=== PATIENT | female | born 1980 | race Caucasian/White ===

== ENCOUNTER 2018-11-08 10:45 | Outpatient (RCR) | payer BC, SELFPAY ==
--- NOTE | 2018-09-21 17:37 | PT.OIE ---
Current Diagnoses Mixed incontinence (09/21/18) Provider Visit Care Team Role Provider Type Keila Lockwood PA-C Attending Provider Non-Staff Primary Care Provider Specialty: Medical Address: [address] [place] [address] [address]n, [place], [address] Email: Physical Therapy Initial Evaluation PT-OP-A Visit Information Start: 09/21/18 14:34 Freq: Status: Active Protocol: Document 09/21/18 14:35 [facility] (Rec: 09/21/18 15:33 [facility] [email or web address]) Out-Patient Physical Therapy Visit Information Visit Information Visit Type Initial Evaluation Visit Start Time 14:30 Visit Stop Time 15:15 Total Visit Minutes 45 Visit Number 1 Evaluation Information Evaluation Date 09/21/18 PT-OP-B Current Condition Start: 09/21/18 14:34 Freq: Status: Active Protocol: Document 09/21/18 14:35 [facility] (Rec: 09/21/18 14:47 [facility] [id number]) Current Condition History of Current Condition Onset Date 4 years ago Current Complaints urinary stress incontinence History of Current Condition 37 year old female 4 years . In the past year she has really noticed increased symptoms of urinary incontinence with exercise, changing positions, light activity, and intercourse. She reports she feels damp all the time. Mary reports she will void but feels as if she is not fully emptying and then will experience leakage once she is up and moving again. Treatment Goals Patient/Caregiver Goals Goals include decreasing leakage and improving pelvic floor strength. She would also like to be able to run again Prior Functional Status Baseline Function- ADL's Independent Baseline Function- Mobility Independent Baseline Function- Other prior to her vaginal delivery 4 years ago she had no symptoms of urinary incontinence Current Functional Impairments (Reported) Functional Limitations- Other urinary leakage at work and with both vigorous and light activity, changing positions and with intercourse PT-OP-I Pelvic Floor Start: 09/21/18 15:36 Freq: Status: Active Protocol: Document 09/21/18 14:35 [facility] (Rec: 09/21/18 16:00 [facility] [email or web address]) Pelvic Floor Assessment Urine Pelvic Floor Surgery No Urinary Symptoms Dribbling After Urination Incomplete Emptying Leakage Size Small Leakage Cause Cough Exercise Lifting Sneeze Leaks Per Day 5 Voiding Frequency 5 times per day, tends to hold for a long time at work during the day Nocturia 0-1 times Pelvic Clock Pelvic Clock 12-3 Atrophy Pelvic Clock 6-9 Guarding Tenderness Pelvic Clock Other difficulty relaxing the left lateral wall of the levator ani SEMG (uV) Baseline 3.0 10 Second Contraction 2.9 Recruitment Pattern Poor/Slow Relaxation Poor/Slow Holding Poor/Slow Stability of Hold Poor/Slow SEMG Stability of Rest Poor/Slow Contraction Ability Voluntary Contraction Absent Manual Muscle Testing Left 1 Manual Muscle Testing Right 1 Manual Muscle Testing Anterior 1 Manual Muscle Testing Posterior 1 Muscle Endurance (Seconds) 3 Number of Quick Contractions In 10 4 Seconds Comments Pelvic Floor Comments very small palpable contraction of the pelvic floor. With EMG biofeedback and NMRE Mary was able to improve her recruitment PT-OP-Q Treatments Start: 09/21/18 15:36 Freq: Status: Active Protocol: Document 09/21/18 14:35 [facility] (Rec: 09/21/18 16:00 [facility] [email or web address]) Therapeutic Exercises Supine Exercises 5 Supine Exercise Name Happy baby and piriformis stretch Comments cues to spread the sitting bones 4 Supine Exercise Name Roll outs Side bilateral Reps/Minutes 3 x 10 reps 3 Supine Exercise Name roll ins to help assist the pelvic floor Side bilateral Reps/Minutes x 10 2 Supine Exercise Name quick contractions Reps/Minutes x 5 1 Supine Exercise Name pelvic floor long holds Side bilateral Reps/Minutes 5 sec hold 10 sec relax x 10 reps to do 2 xms per day at home Neuro Re-Education Treatment Other Activities 1 Details pelvic floor facilitation with EMG biofeedback and manual cues Comments worked on facilitation of the pelvic floor and then trying long holds and quick flicks with EMG biofeedback and manual tactile cues PT-OP-T Assessment and Plan Start: 09/21/18 15:36 Freq: Status: Active Protocol: Document 09/21/18 14:35 [facility] (Rec: 09/21/18 16:00 [facility] [email or web address]) Physical Therapy Assessment Rehab Potential Rehabilitation Potential Excellent Evaluation Complexity Number of Personal Factors/Comorbidities 0 Number of Body Systems Impaired 1-2 Clinical Presentation at Evaluation Stable Impairments Impairments Activity Tolerance Strength Tone Other Impairments urinary stress incontinence Goals Four Impairment Guarding of the left lateral wall of the illiococcygeus Short Term Goal (STG) With stretches for the pelvic floor Mary is able to reduce tightness of the left lateral wall STG Duration 4 weeks Three Impairment Decreased pelvic floor endurance holds 2-3 seconds only Short Term Goal (STG) Improve endurance of the pelvic floor in supine to 10 second hold time STG Duration 4 weeks Fur Finisher Tailor Goal (LTG) Improve endurance of the pelvic floor in standing to 10 second hold time LTG Duration 8 weeks + Two Impairment Poor strength of the levator ani 1/5 MMT all parts internal pelvic clock Short Term Goal (STG) With Neuromuscular re- education Mary is able to facilitate a pelvic floor contraction and has the sensation that she is marisol her pelvic floor STG Duration 2-3 weeks Detention Goal (LTG) Improve strength of all parts of the levator ani from 1/5 to 3-4/5 MMT for improved support of the bladder LTG Duration 8 weeks One Impairment Urinary incontinence 5 times per day and feeling as if she is always damp Detention Goal (LTG) With pelvic floor strengthening Mary is able to eliminate her leakage with ADL's and work related activity. She is able to return to a exercise routine slowly progressing without leakage. LTG Duration 8 weeks + Assessment Summary Assessment Mary presents to physical therapy today at 4 years s/p vaginal delivery. She has had increased leakage since this time but it has progressively worsened in the last year. She feels at this time she is damp all day and has leaks up to 5 times per day. She reports she will void and then experience leakage soon after she has voided once standing and walking around. She is limited in her exercise routine due to leakage. With examination she is very weak in her pelvic floor with 1/5 MMT for all parts of the levator ani. She is guarded on the left lateral wall in the illiococcygeus musculature . She lacks endurance of her pelvic floor with only being to hold 2-3 seconds. She did respond well today to Neuro re -education of the pelvic floor with tactile cues and EMG biofeedback. Mary may benefit from neuromuscular electrical stimulation to help her wake up her pelvic floor. She is a good candidate for PT Physical Therapy Plan Frequency and Duration Frequency of Treatment 1x/Week Duration of Treatment 8 weeks Plan of Care Start Date 09/21/18 Plan of Care End Date 11/16/18 Therapeutic Interventions Therapeutic Interventions Home Exercise Program Manual Therapy Neuromuscular Re-education Self-Care/Home Management Therapeutic Exercises Modalities Biofeedback Electric Stimulation Next Visit Focus/Plan Next Note Type Treatment Note Next Visit Plan Review exercises given today and begin to work on improved endurance of the pelvic floor muscles.
--- NOTE | 2018-09-21 17:40 | PT.OPPOC ---
Current Diagnoses Muscle weakness (generalized) (09/21/18) Mixed incontinence (09/21/18) Provider Visit Care Team Role Provider Type Keila Lockwood PA-C Attending Provider Non-Staff Primary Care Provider Specialty: Medical Address: [address] [place] [address] [address]guy[address]n, [place], [address] Email: Plan Of Care PT-OP-T Assessment and Plan Start: 09/21/18 15:36 Freq: Status: Active Protocol: Document 09/21/18 14:35 [facility] (Rec: 09/21/18 16:00 [facility] [email or web address]) Physical Therapy Assessment Rehab Potential Rehabilitation Potential Excellent Evaluation Complexity Number of Personal Factors/Comorbidities 0 Number of Body Systems Impaired 1-2 Clinical Presentation at Evaluation Stable Impairments Impairments Activity Tolerance Strength Tone Other Impairments urinary stress incontinence Goals Four Impairment Guarding of the left lateral wall of the illiococcygeus Short Term Goal (STG) With stretches for the pelvic floor Mary is able to reduce tightness of the left lateral wall STG Duration 4 weeks Three Impairment Decreased pelvic floor endurance holds 2-3 seconds only Short Term Goal (STG) Improve endurance of the pelvic floor in supine to 10 second hold time STG Duration 4 weeks Snf Goal (LTG) Improve endurance of the pelvic floor in standing to 10 second hold time LTG Duration 8 weeks + Two Impairment Poor strength of the levator ani 1/5 MMT all parts internal pelvic clock Short Term Goal (STG) With Neuromuscular re- education Mary is able to facilitate a pelvic floor contraction and has the sensation that she is marisol her pelvic floor STG Duration 2-3 weeks Coffin Maker Goal (LTG) Improve strength of all parts of the levator ani from 1/5 to 3-4/5 MMT for improved support of the bladder LTG Duration 8 weeks One Impairment Urinary incontinence 5 times per day and feeling as if she is always damp Snf Goal (LTG) With pelvic floor strengthening Mary is able to eliminate her leakage with ADL's and work related activity. She is able to return to a exercise routine slowly progressing without leakage. LTG Duration 8 weeks + Assessment Summary Assessment Mary presents to physical therapy today at 4 years s/p vaginal delivery. She has had increased leakage since this time but it has progressively worsened in the last year. She feels at this time she is damp all day and has leaks up to 5 times per day. She reports she will void and then experience leakage soon after she has voided once standing and walking around. She is limited in her exercise routine due to leakage. With examination she is very weak in her pelvic floor with 1/5 MMT for all parts of the levator ani. She is guarded on the left lateral wall in the illiococcygeus musculature . She lacks endurance of her pelvic floor with only being to hold 2-3 seconds. She did respond well today to Neuro re -education of the pelvic floor with tactile cues and EMG biofeedback. Mary may benefit from neuromuscular electrical stimulation to help her wake up her pelvic floor. She is a good candidate for PT Physical Therapy Plan Frequency and Duration Frequency of Treatment 1x/Week Duration of Treatment 8 weeks Plan of Care Start Date 09/21/18 Plan of Care End Date 11/16/18 Therapeutic Interventions Therapeutic Interventions Home Exercise Program Manual Therapy Neuromuscular Re-education Self-Care/Home Management Therapeutic Exercises Modalities Biofeedback Electric Stimulation Next Visit Focus/Plan Next Note Type Treatment Note Next Visit Plan Review exercises given today and begin to work on improved endurance of the pelvic floor muscles. Plan of Care Dates Plan of Care Start Date 09/21/18 Plan of Care End Date 11/16/18 Please Sign and Return: I have reviewed this Plan of Care and certify that the skilled therapy services above are required to meet the patient?s needs. Physician Signature Date Printed Name and Credentials Clinical Instructor Signature Printed Name and Credentials
--- NOTE | 2018-09-28 10:12 | PT.OTN ---
Current Diagnoses Mixed incontinence (09/26/18) Physical Therapy Treatment Note PT-OP-A Visit Information Start: 09/21/18 14:34 Freq: Status: Active Protocol: Document 09/26/18 09:00 [facility] (Rec: 09/28/18 10:12 [facility] [email or web address]) Out-Patient Physical Therapy Visit Information Visit Information Visit Type Treatment Note Visit Start Time 09:00 Visit Stop Time 09:45 Total Visit Minutes 45 Visit Number 2 Evaluation Information Evaluation Date 09/21/18 PT-OP-B Current Condition Start: 09/21/18 14:34 Freq: Status: Active Protocol: Document 09/21/18 14:35 [facility] (Rec: 09/21/18 14:47 [facility] [id number]) Current Condition History of Current Condition Onset Date 4 years ago Current Complaints urinary stress incontinence History of Current Condition 37 year old female 4 years . In the past year she has really noticed increased symptoms of urinary incontinence with exercise, changing positions, light activity, and intercourse. She reports she feels damp all the time. Mary reports she will void but feels as if she is not fully emptying and then will experience leakage once she is up and moving again. Treatment Goals Patient/Caregiver Goals Goals include decreasing leakage and improving pelvic floor strength. She would also like to be able to run again Prior Functional Status Baseline Function- ADL's Independent Baseline Function- Mobility Independent Baseline Function- Other prior to her vaginal delivery 4 years ago she had no symptoms of urinary incontinence Current Functional Impairments (Reported) Functional Limitations- Other urinary leakage at work and with both vigorous and light activity, changing positions and with intercourse PT-OP-C Subjective Start: 09/21/18 15:36 Freq: Status: Active Protocol: Document 09/26/18 09:00 [facility] (Rec: 09/28/18 10:12 [facility] [email or web address]) OP-PT Subjective Patient Comments Patient Comments Mary reports has been trying to use the toileting techniques while voiding, she has been working on her exercises PT-OP-I Pelvic Floor Start: 09/21/18 15:36 Freq: Status: Active Protocol: Document 09/21/18 14:35 [facility] (Rec: 09/21/18 16:00 [facility] [email or web address]) Pelvic Floor Assessment Urine Pelvic Floor Surgery No Urinary Symptoms Dribbling After Urination Incomplete Emptying Leakage Size Small Leakage Cause Cough Exercise Lifting Sneeze Leaks Per Day 5 Voiding Frequency 5 times per day, tends to hold for a long time at work during the day Nocturia 0-1 times Pelvic Clock Pelvic Clock 12-3 Atrophy Pelvic Clock 6-9 Guarding Tenderness Pelvic Clock Other difficulty relaxing the left lateral wall of the levator ani SEMG (uV) Baseline 3.0 10 Second Contraction 2.9 Recruitment Pattern Poor/Slow Relaxation Poor/Slow Holding Poor/Slow Stability of Hold Poor/Slow SEMG Stability of Rest Poor/Slow Contraction Ability Voluntary Contraction Absent Manual Muscle Testing Left 1 Manual Muscle Testing Right 1 Manual Muscle Testing Anterior 1 Manual Muscle Testing Posterior 1 Muscle Endurance (Seconds) 3 Number of Quick Contractions In 10 4 Seconds Comments Pelvic Floor Comments very small palpable contraction of the pelvic floor. With EMG biofeedback and NMRE Mary was able to improve her recruitment PT-OP-Q Treatments Start: 09/21/18 15:36 Freq: Status: Active Protocol: Document 09/26/18 09:00 [facility] (Rec: 09/28/18 10:12 [facility] [email or web address]) Therapeutic Exercises Supine Exercises 6 Supine Exercise Name templates for eccentric control and coordination of the pelvic floor Reps/Minutes x 10 min 4 Supine Exercise Name Roll outs Side bilateral Reps/Minutes 3 x 10 reps 3 Supine Exercise Name roll ins to help assist the pelvic floor Side bilateral Reps/Minutes x 10 2 Supine Exercise Name quick contractions Reps/Minutes x 5 1 Supine Exercise Name pelvic floor long holds Side bilateral Reps/Minutes 5 sec hold 10 sec relax x 10 reps to do 2 xms per day at home Neuro Re-Education Treatment Other Activities 2 Details NMES for pelvic floor facilitation Comments able to feel the anterior portion of the pelvic floor Self-Care/Home Management Treatment Education Patient Education Home Exercise Program Other Education toileting strategies for fully voiding PT-OP-T Assessment and Plan Start: 09/21/18 15:36 Freq: Status: Active Protocol: Document 09/26/18 09:00 [facility] (Rec: 09/28/18 10:12 [facility] [email or web address]) Physical Therapy Assessment Assessment Summary Assessment Average on EMG biofeedback today is 7.4 average and 11.9 max, we did start NMES today for improved sensation of the pelvic floor. She is working on relaxed awareness of the pelvic floor and feels it is just as difficult to relax as it is to contract. She is able to feel the anterior portion of the levator ani with NMES Physical Therapy Plan Frequency and Duration Frequency of Treatment 1x/Week Duration of Treatment 8 weeks Plan of Care Start Date 09/21/18 Plan of Care End Date 11/16/18 Therapeutic Interventions Therapeutic Interventions Home Exercise Program Manual Therapy Neuromuscular Re-education Self-Care/Home Management Therapeutic Exercises Modalities Biofeedback Electric Stimulation Next Visit Focus/Plan Next Note Type Treatment Note Next Visit Plan begin with stretches and add in quadraped TA facilitation/ relaxation
--- NOTE | 2018-10-08 12:21 | PT.OTN ---
Current Diagnoses Mixed incontinence (10/04/18) Physical Therapy Treatment Note PT-OP-A Visit Information Start: 09/21/18 14:34 Freq: Status: Active Protocol: Document 10/04/18 10:45 [facility] (Rec: 10/08/18 12:21 [facility] [email or web address]) Out-Patient Physical Therapy Visit Information Visit Information Visit Type Treatment Note Visit Start Time 10:45 Visit Stop Time 11:30 Total Visit Minutes 45 Visit Number 3 PT-OP-B Current Condition Start: 09/21/18 14:34 Freq: Status: Active Protocol: Document 09/21/18 14:35 [facility] (Rec: 09/21/18 14:47 [facility] [id number]) Current Condition History of Current Condition Onset Date 4 years ago Current Complaints urinary stress incontinence History of Current Condition 37 year old female 4 years . In the past year she has really noticed increased symptoms of urinary incontinence with exercise, changing positions, light activity, and intercourse. She reports she feels damp all the time. Mary reports she will void but feels as if she is not fully emptying and then will experience leakage once she is up and moving again. Treatment Goals Patient/Caregiver Goals Goals include decreasing leakage and improving pelvic floor strength. She would also like to be able to run again Prior Functional Status Baseline Function- ADL's Independent Baseline Function- Mobility Independent Baseline Function- Other prior to her vaginal delivery 4 years ago she had no symptoms of urinary incontinence Current Functional Impairments (Reported) Functional Limitations- Other urinary leakage at work and with both vigorous and light activity, changing positions and with intercourse PT-OP-C Subjective Start: 09/21/18 15:36 Freq: Status: Active Protocol: Document 10/04/18 10:45 [facility] (Rec: 10/08/18 12:21 [facility] [email or web address]) OP-PT Subjective Patient Comments Patient Comments Mary reports symptoms are a little better now and she has been doing her exercises PT-OP-I Pelvic Floor Start: 09/21/18 15:36 Freq: Status: Active Protocol: Document 09/21/18 14:35 [facility] (Rec: 09/21/18 16:00 [facility] [email or web address]) Pelvic Floor Assessment Urine Pelvic Floor Surgery No Urinary Symptoms Dribbling After Urination Incomplete Emptying Leakage Size Small Leakage Cause Cough Exercise Lifting Sneeze Leaks Per Day 5 Voiding Frequency 5 times per day, tends to hold for a long time at work during the day Nocturia 0-1 times Pelvic Clock Pelvic Clock 12-3 Atrophy Pelvic Clock 6-9 Guarding Tenderness Pelvic Clock Other difficulty relaxing the left lateral wall of the levator ani SEMG (uV) Baseline 3.0 10 Second Contraction 2.9 Recruitment Pattern Poor/Slow Relaxation Poor/Slow Holding Poor/Slow Stability of Hold Poor/Slow SEMG Stability of Rest Poor/Slow Contraction Ability Voluntary Contraction Absent Manual Muscle Testing Left 1 Manual Muscle Testing Right 1 Manual Muscle Testing Anterior 1 Manual Muscle Testing Posterior 1 Muscle Endurance (Seconds) 3 Number of Quick Contractions In 10 4 Seconds Comments Pelvic Floor Comments very small palpable contraction of the pelvic floor. With EMG biofeedback and NMRE Mary was able to improve her recruitment PT-OP-Q Treatments Start: 09/21/18 15:36 Freq: Status: Active Protocol: Document 10/04/18 10:45 [facility] (Rec: 10/08/18 12:21 [facility] [email or web address]) Therapeutic Exercises Supine Exercises 6 Supine Exercise Name templates for eccentric control and coordination of the pelvic floor Reps/Minutes x 10 min 3 Supine Exercise Name roll ins to help assist the pelvic floor Side bilateral Reps/Minutes x 10 2 Supine Exercise Name quick contractions Reps/Minutes x 5 1 Supine Exercise Name pelvic floor long holds Side bilateral Reps/Minutes 5 sec hold 10 sec relax x 10 reps to do 2 xms per day at home Sidelying Exercises 1 Sidelying Exercise Name sidelying clam shells Reps/Minutes 3 x 10 reps Neuro Re-Education Treatment Other Activities 2 Details NMES for pelvic floor facilitation Comments able to feel the anterior portion of the pelvic floor PT-OP-T Assessment and Plan Start: 09/21/18 15:36 Freq: Status: Active Protocol: Document 10/04/18 10:45 [facility] (Rec: 10/08/18 12:21 [facility] [email or web address]) Physical Therapy Assessment Assessment Summary Assessment Today we did NMES at the end of treatment after biofeedback . Mary's numbers were 4.1 uv average and 7.3 max. She did better last treatment when NMES was performed first. I also added in clam shells today which she tolerated well . Physical Therapy Plan Frequency and Duration Frequency of Treatment 1x/Week Duration of Treatment 8 weeks Plan of Care Start Date 09/21/18 Plan of Care End Date 11/16/18 Therapeutic Interventions Therapeutic Interventions Home Exercise Program Manual Therapy Neuromuscular Re-education Self-Care/Home Management Therapeutic Exercises Modalities Biofeedback Electric Stimulation Next Visit Focus/Plan Next Note Type Treatment Note Next Visit Plan TA in quadraped, clam shells and then do NMES first prior to EMG biofeedback
--- NOTE | 2018-10-11 14:24 | PT.OTN ---
Current Diagnoses Mixed incontinence (10/11/18) Physical Therapy Treatment Note PT-OP-A Visit Information Start: 09/21/18 14:34 Freq: Status: Active Protocol: Document 10/11/18 14:18 [facility] (Rec: 10/11/18 14:23 [facility] [email or web address]) Out-Patient Physical Therapy Visit Information Visit Information Visit Type Treatment Note Visit Start Time 10:45 Visit Stop Time 11:30 Total Visit Minutes 45 Visit Number 4 Evaluation Information Evaluation Date 09/21/18 PT-OP-B Current Condition Start: 09/21/18 14:34 Freq: Status: Active Protocol: Document 09/21/18 14:35 [facility] (Rec: 09/21/18 14:47 [facility] [id number]) Current Condition History of Current Condition Onset Date 4 years ago Current Complaints urinary stress incontinence History of Current Condition 37 year old female 4 years . In the past year she has really noticed increased symptoms of urinary incontinence with exercise, changing positions, light activity, and intercourse. She reports she feels damp all the time. Mary reports she will void but feels as if she is not fully emptying and then will experience leakage once she is up and moving again. Treatment Goals Patient/Caregiver Goals Goals include decreasing leakage and improving pelvic floor strength. She would also like to be able to run again Prior Functional Status Baseline Function- ADL's Independent Baseline Function- Mobility Independent Baseline Function- Other prior to her vaginal delivery 4 years ago she had no symptoms of urinary incontinence Current Functional Impairments (Reported) Functional Limitations- Other urinary leakage at work and with both vigorous and light activity, changing positions and with intercourse PT-OP-C Subjective Start: 09/21/18 15:36 Freq: Status: Active Protocol: Document 10/11/18 14:18 [facility] (Rec: 10/11/18 14:23 [facility] [email or web address]) OP-PT Subjective Patient Comments Patient Comments Mary reports she has had a busy week, doing what she can with exercises. Hasn't been able to do as many of the stretches PT-OP-I Pelvic Floor Start: 09/21/18 15:36 Freq: Status: Active Protocol: Document 09/21/18 14:35 [facility] (Rec: 09/21/18 16:00 [facility] [email or web address]) Pelvic Floor Assessment Urine Pelvic Floor Surgery No Urinary Symptoms Dribbling After Urination Incomplete Emptying Leakage Size Small Leakage Cause Cough Exercise Lifting Sneeze Leaks Per Day 5 Voiding Frequency 5 times per day, tends to hold for a long time at work during the day Nocturia 0-1 times Pelvic Clock Pelvic Clock 12-3 Atrophy Pelvic Clock 6-9 Guarding Tenderness Pelvic Clock Other difficulty relaxing the left lateral wall of the levator ani SEMG (uV) Baseline 3.0 10 Second Contraction 2.9 Recruitment Pattern Poor/Slow Relaxation Poor/Slow Holding Poor/Slow Stability of Hold Poor/Slow SEMG Stability of Rest Poor/Slow Contraction Ability Voluntary Contraction Absent Manual Muscle Testing Left 1 Manual Muscle Testing Right 1 Manual Muscle Testing Anterior 1 Manual Muscle Testing Posterior 1 Muscle Endurance (Seconds) 3 Number of Quick Contractions In 10 4 Seconds Comments Pelvic Floor Comments very small palpable contraction of the pelvic floor. With EMG biofeedback and NMRE Mary was able to improve her recruitment PT-OP-Q Treatments Start: 09/21/18 15:36 Freq: Status: Active Protocol: Document 10/11/18 14:18 [facility] (Rec: 10/11/18 14:23 [facility] [id number]) Therapeutic Exercises Supine Exercises 6 Supine Exercise Name templates for eccentric control and coordination of the pelvic floor Reps/Minutes x 4 min 5 Supine Exercise Name Happy baby and piriformis stretch Comments cues to spread the sitting bones 2 Supine Exercise Name quick contractions Reps/Minutes x 5 1 Supine Exercise Name pelvic floor long holds Side bilateral Reps/Minutes 5 sec hold 10 sec relax x 10 reps to do 2 xms per day at home Sidelying Exercises 1 Sidelying Exercise Name sidelying clam shells Reps/Minutes 3 x 10 reps Other Exercises 2 Other Exercise Name quadruped transverse abdominal facilitation Reps/Minutes x 10 Comments exhale with contraction 1 Other Exercise Name sit-stand with pelvic floor contraction Reps/Minutes x 10 reps PT-OP-T Assessment and Plan Start: 09/21/18 15:36 Freq: Status: Active Protocol: Document 10/11/18 14:18 [facility] (Rec: 10/11/18 14:23 [facility] [id number]) Physical Therapy Assessment Assessment Summary Assessment NMES was performed prior to EMG biofeedback and this really helped Mary. Her average was 6.6 with m ax of 11.7 Physical Therapy Plan Frequency and Duration Frequency of Treatment 1x/Week Duration of Treatment 8 weeks Plan of Care Start Date 09/21/18 Plan of Care End Date 11/16/18 Therapeutic Interventions Therapeutic Interventions Home Exercise Program Manual Therapy Neuromuscular Re-education Self-Care/Home Management Therapeutic Exercises Modalities Biofeedback Electric Stimulation Next Visit Focus/Plan Next Note Type Treatment Note Next Visit Plan Progress TA facilitation as tolerated continue with NMES and pelvic floor strengthening , continued work on the lateral hips
--- NOTE | 2018-10-25 13:09 | PT.OTN ---
Current Diagnoses Mixed incontinence (10/25/18) Physical Therapy Treatment Note PT-OP-A Visit Information Start: 09/21/18 14:34 Freq: Status: Active Protocol: Document 10/25/18 11:58 [facility] (Rec: 10/25/18 11:58 [facility] [id number]) Out-Patient Physical Therapy Visit Information Visit Information Visit Type Treatment Note Visit Start Time 11:30 Visit Stop Time 12:15 Total Visit Minutes 45 Visit Number 5 Evaluation Information Evaluation Date 09/21/18 PT-OP-B Current Condition Start: 09/21/18 14:34 Freq: Status: Active Protocol: Document 09/21/18 14:35 [facility] (Rec: 09/21/18 14:47 [facility] [id number]) Current Condition History of Current Condition Onset Date 4 years ago Current Complaints urinary stress incontinence History of Current Condition 37 year old female 4 years . In the past year she has really noticed increased symptoms of urinary incontinence with exercise, changing positions, light activity, and intercourse. She reports she feels damp all the time. Mary reports she will void but feels as if she is not fully emptying and then will experience leakage once she is up and moving again. Treatment Goals Patient/Caregiver Goals Goals include decreasing leakage and improving pelvic floor strength. She would also like to be able to run again Prior Functional Status Baseline Function- ADL's Independent Baseline Function- Mobility Independent Baseline Function- Other prior to her vaginal delivery 4 years ago she had no symptoms of urinary incontinence Current Functional Impairments (Reported) Functional Limitations- Other urinary leakage at work and with both vigorous and light activity, changing positions and with intercourse PT-OP-C Subjective Start: 09/21/18 15:36 Freq: Status: Active Protocol: Document 10/25/18 11:32 [facility] (Rec: 10/25/18 11:35 [facility] [id number]) OP-PT Subjective Patient Comments Patient Comments Taking prednisone for bites she got in [facility]. Overall feels like her pelvic floor is doing better Patient Reported Progress Improving PT-OP-I Pelvic Floor Start: 09/21/18 15:36 Freq: Status: Active Protocol: Document 09/21/18 14:35 [facility] (Rec: 09/21/18 16:00 [facility] [email or web address]) Pelvic Floor Assessment Urine Pelvic Floor Surgery No Urinary Symptoms Dribbling After Urination Incomplete Emptying Leakage Size Small Leakage Cause Cough Exercise Lifting Sneeze Leaks Per Day 5 Voiding Frequency 5 times per day, tends to hold for a long time at work during the day Nocturia 0-1 times Pelvic Clock Pelvic Clock 12-3 Atrophy Pelvic Clock 6-9 Guarding Tenderness Pelvic Clock Other difficulty relaxing the left lateral wall of the levator ani SEMG (uV) Baseline 3.0 10 Second Contraction 2.9 Recruitment Pattern Poor/Slow Relaxation Poor/Slow Holding Poor/Slow Stability of Hold Poor/Slow SEMG Stability of Rest Poor/Slow Contraction Ability Voluntary Contraction Absent Manual Muscle Testing Left 1 Manual Muscle Testing Right 1 Manual Muscle Testing Anterior 1 Manual Muscle Testing Posterior 1 Muscle Endurance (Seconds) 3 Number of Quick Contractions In 10 4 Seconds Comments Pelvic Floor Comments very small palpable contraction of the pelvic floor. With EMG biofeedback and MAHESH Mary was able to improve her recruitment PT-OP-Q Treatments Start: 09/21/18 15:36 Freq: Status: Active Protocol: Document 10/25/18 13:09 [facility] (Rec: 10/25/18 13:09 [facility] [email or web address]) Neuro Re-Education Treatment Other Activities 2 Details NMES for pelvic floor facilitation Comments able to feel the anterior portion of the pelvic floor PT-OP-T Assessment and Plan Start: 09/21/18 15:36 Freq: Status: Active Protocol: Document 10/25/18 11:58 [facility] (Rec: 10/25/18 12:01 [facility] [id number]) Physical Therapy Assessment Assessment Summary Assessment Able to add on TA stabilization today with donald. Right greater than left iliopsoas stretch Physical Therapy Plan Frequency and Duration Frequency of Treatment 1x/Week Duration of Treatment 8 weeks Plan of Care Start Date 09/21/18 Plan of Care End Date 11/16/18 Next Visit Focus/Plan Next Note Type Treatment Note Next Visit Plan Progress TA facilitation as tolerated continue with NMES and pelvic floor strengthening , continued work on the lateral hips
--- NOTE | 2018-11-02 12:54 | PT.OTN ---
Current Diagnoses Mixed incontinence (11/01/18) Physical Therapy Treatment Note PT-OP-A Visit Information Start: 09/21/18 14:34 Freq: Status: Active Protocol: Document 11/01/18 10:45 [facility] (Rec: 11/02/18 12:53 [facility] [email or web address]) Out-Patient Physical Therapy Visit Information Visit Information Visit Type Treatment Note Visit Start Time 10:45 Visit Stop Time 11:30 Total Visit Minutes 45 Visit Number 6 PT-OP-B Current Condition Start: 09/21/18 14:34 Freq: Status: Active Protocol: Document 09/21/18 14:35 AM[facility] (Rec: 09/21/18 14:47 [facility] [id number]) Current Condition History of Current Condition Onset Date 4 years ago Current Complaints urinary stress incontinence History of Current Condition 37 year old female 4 years . In the past year she has really noticed increased symptoms of urinary incontinence with exercise, changing positions, light activity, and intercourse. She reports she feels damp all the time. Mary reports she will void but feels as if she is not fully emptying and then will experience leakage once she is up and moving again. Treatment Goals Patient/Caregiver Goals Goals include decreasing leakage and improving pelvic floor strength. She would also like to be able to run again Prior Functional Status Baseline Function- ADL's Independent Baseline Function- Mobility Independent Baseline Function- Other prior to her vaginal delivery 4 years ago she had no symptoms of urinary incontinence Current Functional Impairments (Reported) Functional Limitations- Other urinary leakage at work and with both vigorous and light activity, changing positions and with intercourse PT-OP-C Subjective Start: 09/21/18 15:36 Freq: Status: Active Protocol: Document 11/01/18 10:45 [facility] (Rec: 11/02/18 12:53 [facility] [email or web address]) OP-PT Subjective Patient Comments Patient Comments Mary reports emptying her bladder is becomming easier and she is not having to do a second emptying. She also reports she was able to get her pelvic floor quickly squeezed before a sneeze this week Patient Reported Progress Improving PT-OP-I Pelvic Floor Start: 09/21/18 15:36 Freq: Status: Active Protocol: Document 09/21/18 14:35 [facility] (Rec: 09/21/18 16:00 [facility] [email or web address]) Pelvic Floor Assessment Urine Pelvic Floor Surgery No Urinary Symptoms Dribbling After Urination Incomplete Emptying Leakage Size Small Leakage Cause Cough Exercise Lifting Sneeze Leaks Per Day 5 Voiding Frequency 5 times per day, tends to hold for a long time at work during the day Nocturia 0-1 times Pelvic Clock Pelvic Clock 12-3 Atrophy Pelvic Clock 6-9 Guarding Tenderness Pelvic Clock Other difficulty relaxing the left lateral wall of the levator ani SEMG (uV) Baseline 3.0 10 Second Contraction 2.9 Recruitment Pattern Poor/Slow Relaxation Poor/Slow Holding Poor/Slow Stability of Hold Poor/Slow SEMG Stability of Rest Poor/Slow Contraction Ability Voluntary Contraction Absent Manual Muscle Testing Left 1 Manual Muscle Testing Right 1 Manual Muscle Testing Anterior 1 Manual Muscle Testing Posterior 1 Muscle Endurance (Seconds) 3 Number of Quick Contractions In 10 4 Seconds Comments Pelvic Floor Comments very small palpable contraction of the pelvic floor. With EMG biofeedback and MAHESH Hernandez was able to improve her recruitment PT-OP-Q Treatments Start: 09/21/18 15:36 Freq: Status: Active Protocol: Document 11/01/18 10:45 [facility] (Rec: 11/02/18 12:53 [facility] [email or web address]) Therapeutic Exercises Supine Exercises 7 Supine Exercise Name Transverse abdominals with donald Comments progressed to level 1b 6 Supine Exercise Name templates for eccentric control and coordination of the pelvic floor Reps/Minutes x 4 min 5 Supine Exercise Name Happy baby and piriformis stretch Comments cues to spread the sitting bones 3 Supine Exercise Name roll ins to help assist the pelvic floor Side bilateral Reps/Minutes x 10 2 Supine Exercise Name quick contractions Reps/Minutes x 10 1 Supine Exercise Name pelvic floor long holds Side bilateral Reps/Minutes 5 sec hold 10 sec relax x 10 reps to do 2 xms per day at home Sidelying Exercises 3 Sidelying Exercise Name sidelying hip circles Reps/Minutes x 10 each direction 2 Sidelying Exercise Name sidelying hip abduction Reps/Minutes 3x 10 1 Sidelying Exercise Name sidelying clam shells Reps/Minutes 3 x 10 reps PT-OP-T Assessment and Plan Start: 09/21/18 15:36 Freq: Status: Active Protocol: Document 11/01/18 10:45 [facility] (Rec: 11/02/18 12:53 [facility] [id number]) Physical Therapy Assessment Assessment Summary Assessment Able to relax to baseline today so good progress with resting tone. Added in level 1 b TA facilitation with marches and Mary tolerated this well Physical Therapy Plan Frequency and Duration Frequency of Treatment 1x/Week Duration of Treatment 8 weeks Plan of Care Start Date 09/21/18 Plan of Care End Date 11/16/18 Next Visit Focus/Plan Next Note Type Treatment Note Next Visit Plan Progress TA facilitation as tolerated continue with NMES and pelvic floor strengthening , continued work on the lateral hips
--- NOTE | 2018-11-09 11:09 | PT.OTN ---
Current Diagnoses Mixed incontinence (11/08/18) Physical Therapy Treatment Note PT-OP-A Visit Information Start: 09/21/18 14:34 Freq: Status: Active Protocol: Document 11/08/18 10:30 [facility] (Rec: 11/09/18 11:07 [facility] [email or web address]) Out-Patient Physical Therapy Visit Information Visit Information Visit Type Progress Note Visit Start Time 10:30 Visit Stop Time 11:15 Total Visit Minutes 45 Visit Number 7 Evaluation Information Evaluation Date 09/21/18 PT-OP-B Current Condition Start: 09/21/18 14:34 Freq: Status: Active Protocol: Document 09/21/18 14:35 [facility] (Rec: 09/21/18 14:47 [facility] [id number]) Current Condition History of Current Condition Onset Date 4 years ago Current Complaints urinary stress incontinence History of Current Condition 37 year old female 4 years . In the past year she has really noticed increased symptoms of urinary incontinence with exercise, changing positions, light activity, and intercourse. She reports she feels damp all the time. Mary reports she will void but feels as if she is not fully emptying and then will experience leakage once she is up and moving again. Treatment Goals Patient/Caregiver Goals Goals include decreasing leakage and improving pelvic floor strength. She would also like to be able to run again Prior Functional Status Baseline Function- ADL's Independent Baseline Function- Mobility Independent Baseline Function- Other prior to her vaginal delivery 4 years ago she had no symptoms of urinary incontinence Current Functional Impairments (Reported) Functional Limitations- Other urinary leakage at work and with both vigorous and light activity, changing positions and with intercourse PT-OP-C Subjective Start: 09/21/18 15:36 Freq: Status: Active Protocol: Document 11/08/18 10:30 [facility] (Rec: 11/09/18 11:07 [facility] [email or web address]) OP-PT Subjective Patient Comments Patient Comments Mary reports she is doing better overall and is feeling stronger. She still has symptoms but they are lessening. Patient Reported Progress Improving PT-OP-I Pelvic Floor Start: 09/21/18 15:36 Freq: Status: Active Protocol: Document 09/21/18 14:35 [facility] (Rec: 09/21/18 16:00 [facility] [email or web address]) Pelvic Floor Assessment Urine Pelvic Floor Surgery No Urinary Symptoms Dribbling After Urination Incomplete Emptying Leakage Size Small Leakage Cause Cough Exercise Lifting Sneeze Leaks Per Day 5 Voiding Frequency 5 times per day, tends to hold for a long time at work during the day Nocturia 0-1 times Pelvic Clock Pelvic Clock 12-3 Atrophy Pelvic Clock 6-9 Guarding Tenderness Pelvic Clock Other difficulty relaxing the left lateral wall of the levator ani SEMG (uV) Baseline 3.0 10 Second Contraction 2.9 Recruitment Pattern Poor/Slow Relaxation Poor/Slow Holding Poor/Slow Stability of Hold Poor/Slow SEMG Stability of Rest Poor/Slow Contraction Ability Voluntary Contraction Absent Manual Muscle Testing Left 1 Manual Muscle Testing Right 1 Manual Muscle Testing Anterior 1 Manual Muscle Testing Posterior 1 Muscle Endurance (Seconds) 3 Number of Quick Contractions In 10 4 Seconds Comments Pelvic Floor Comments very small palpable contraction of the pelvic floor. With EMG biofeedback and MAHESH Mary was able to improve her recruitment PT-OP-Q Treatments Start: 09/21/18 15:36 Freq: Status: Active Protocol: Document 11/08/18 10:30 [facility] (Rec: 11/09/18 11:07 [facility] [email or web address]) Therapeutic Exercises Supine Exercises 7 Supine Exercise Name Transverse abdominals with marches Comments progressed to level 1b 6 Supine Exercise Name templates for eccentric control and coordination of the pelvic floor Reps/Minutes x 4 min 5 Supine Exercise Name Happy baby and piriformis stretch Comments cues to spread the sitting bones 2 Supine Exercise Name quick contractions Reps/Minutes x 10 1 Supine Exercise Name pelvic floor long holds Side bilateral Reps/Minutes 10 sec hold 10 sec relax x 10 reps to do 2 xms per day at home Sidelying Exercises 3 Sidelying Exercise Name sidelying hip circles Reps/Minutes x 10 each direction 2 Sidelying Exercise Name sidelying hip abduction Reps/Minutes 3x 10 1 Sidelying Exercise Name sidelying clam shells Reps/Minutes 3 x 10 reps Other Exercises 2 Other Exercise Name quadruped cat cow Reps/Minutes x 10 reps 1 Other Exercise Name quadraped TA facilitation with opp arm and leg lifts Neuro Re-Education Treatment Other Activities 2 Details NMES for pelvic floor facilitation Comments able to feel the anterior portion of the pelvic floor PT-OP-T Assessment and Plan Start: 09/21/18 15:36 Freq: Status: Active Protocol: Document 11/08/18 10:30 [facility] (Rec: 11/09/18 11:07 [facility] [email or web address]) Physical Therapy Assessment Goals Four Impairment Guarding of the left lateral wall of the illiococcygeus Short Term Goal (STG) With stretches for the pelvic floor Mary is able to reduce tightness of the left lateral wall STG Duration 4 weeks Drug Safety Data Management Specialist Goal (LTG) As of 11/08/18 Mary still tends to be tight at times in the pelvic floor. She has been able to relax her pelvic floor but this is difficult for Mary to do. She is fully voiding and feels that her stream pressure is increased but relaxed awareness is still a area we are working on Three Impairment Decreased pelvic floor endurance holds 2-3 seconds only Short Term Goal (STG) Improve endurance of the pelvic floor in supine to 10 second hold time GOAL MET as of 11/08/18 STG Duration 4 weeks Drug Safety Data Management Specialist Goal (LTG) Improve endurance of the pelvic floor in standing to 10 second hold time GOOD PROGRESS LTG Duration 8 weeks + Two Impairment Poor strength of the levator ani 1/5 MMT all parts internal pelvic clock Short Term Goal (STG) With Neuromuscular re- education Mary is able to facilitate a pelvic floor contraction and has the sensation that she is marisol her pelvic floor GOAL MET STG Duration 2-3 weeks Drug Safety Data Management Specialist Goal (LTG) Improve strength of all parts of the levator ani from 1/5 to 3-4/5 MMT for improved support of the bladder GOOD PROGRESS LTG Duration 8 weeks One Impairment Urinary incontinence 5 times per day and feeling as if she is always damp [facility] Goal (LTG) With pelvic floor strengthening Mary is able to eliminate her leakage with ADL's and work related activity. She is able to return to a exercise routine slowly progressing without leakage. GOOD PROGRESS LTG Duration 8 weeks + Progress Towards Goals Progress Towards Goals Progressing Toward Goals Assessment Summary Assessment Mary is making steady progress with PT. Both the strength of her lower abdominal muscles as well as her pelvic floor strength has improved. Her endurance is much improved as well. She is noting a decrease in her leakage and tolerating increased activity without leakage. Her average on EMG biofeedback today is 14.3 uv with max of 33 Initially her average was a 2.9 uv with max of 10 uv at time of her initial evaluation on 09/21/18. Mary has one visit left scheduled out a few weeks so she can work on her exercises and then we can progress her to standing dynamic exercises next visit. Physical Therapy Plan Frequency and Duration Frequency of Treatment 1x/Week Duration of Treatment 8 weeks Plan of Care Start Date 11/08/18 Plan of Care End Date 12/09/18 Therapeutic Interventions Therapeutic Interventions Home Exercise Program Manual Therapy Neuromuscular Re-education Self-Care/Home Management Therapeutic Exercises Modalities Biofeedback Electric Stimulation Next Visit Focus/Plan Next Note Type Treatment Note Next Visit Plan Progress TA facilitation as tolerated continue with NMES and pelvic floor strengthening , continued work on the lateral hips Recheck manual muscle test of the levator ani next visit
--- NOTE | 2019-03-12 12:22 | PT.OPDS ---
Current Diagnoses Mixed incontinence (11/08/18) Visit Care Team Role Provider Type Keila Lockwood PA-C Attending Provider Non-Staff Primary Care Provider Specialty: Medical Address: [address] [place] [address] [address] Nguy[address]n, [place], [address] Email: Visit Number Visit Number 7 Discharge Summary PT-OP-B Current Condition Start: 09/21/18 14:34 Freq: Status: Active Protocol: Document 09/21/18 14:35 [facility] (Rec: 09/21/18 14:47 [facility] [id number]) Current Condition History of Current Condition Onset Date 4 years ago Current Complaints urinary stress incontinence History of Current Condition 37 year old female 4 years . In the past year she has really noticed increased symptoms of urinary incontinence with exercise, changing positions, light activity, and intercourse. She reports she feels damp all the time. Mary reports she will void but feels as if she is not fully emptying and then will experience leakage once she is up and moving again. Treatment Goals Patient/Caregiver Goals Goals include decreasing leakage and improving pelvic floor strength. She would also like to be able to run again Prior Functional Status Baseline Function- ADL's Independent Baseline Function- Mobility Independent Baseline Function- Other prior to her vaginal delivery 4 years ago she had no symptoms of urinary incontinence Current Functional Impairments (Reported) Functional Limitations- Other urinary leakage at work and with both vigorous and light activity, changing positions and with intercourse PT-OP-C Subjective Start: 09/21/18 15:36 Freq: Status: Active Protocol: Document 11/08/18 10:30 [facility] (Rec: 11/09/18 11:07 [facility] [email or web address]) OP-PT Subjective Patient Comments Patient Comments Mary reports she is doing better overall and is feeling stronger. She still has symptoms but they are lessening. Patient Reported Progress Improving PT-OP-I Pelvic Floor Start: 09/21/18 15:36 Freq: Status: Active Protocol: Document 09/21/18 14:35 [facility] (Rec: 09/21/18 16:00 [facility] [email or web address]) Pelvic Floor Assessment Urine Pelvic Floor Surgery No Urinary Symptoms Dribbling After Urination, Incomplete Emptying Leakage Size Small Leakage Cause Cough,Exercise,Lifting,Sneeze Leaks Per Day 5 Voiding Frequency 5 times per day, tends to hold for a long time at work during the day Nocturia 0-1 times Pelvic Clock Pelvic Clock 12-3 Atrophy Pelvic Clock 6-9 Guarding,Tenderness Pelvic Clock Other difficulty relaxing the left lateral wall of the levator ani SEMG (uV) Baseline 3.0 10 Second Contraction 2.9 Recruitment Pattern Poor/Slow Relaxation Poor/Slow Holding Poor/Slow Stability of Hold Poor/Slow SEMG Stability of Rest Poor/Slow Contraction Ability Voluntary Contraction Absent Manual Muscle Testing Left 1 Manual Muscle Testing Right 1 Manual Muscle Testing Anterior 1 Manual Muscle Testing Posterior 1 Muscle Endurance (Seconds) 3 Number of Quick Contractions In 10 4 Seconds Comments Pelvic Floor Comments very small palpable contraction of the pelvic floor. With EMG biofeedback and NMRE Mary was able to improve her recruitment PT-OP-T Assessment and Plan Start: 09/21/18 15:36 Freq: Status: Active Protocol: Document 03/12/19 12:21 [facility] (Rec: 03/12/19 12:22 [facility] [id number]) Physical Therapy Plan Discharge Physical Therapy Discharge Reasons No Longer Attending PT Discharge Comments PT has not been seen since her last ND to the [facility]. She was doing better overall but the plan was to work on more dynamic exercises. At this time she will be discharged to a independent home program
== END 2019-03-16 10:31 ==
LOC: PHYS 10:45
PROVIDERS: PCP Physician Assistant; Visit Provider Physician Assistant
DX: N39.46 Mixed incontinence (principal)
CPT/HCPCS: 97110; 97112; 97161; 97535